=== PATIENT | female | born 1955 | race African-American/Black ===

== ENCOUNTER 2016-06-18 11:27 | Emergency (ER) | payer MEDICARE, MEDICAID ==
[2016-06-18] MEDS ORDERED: NAPROXEN 375 MG TABLET PO ONE (12:03)
--- NOTE | 2016-06-18 12:06 | ER Document Report ---
ED Medical Screen (RME) - General Stated Complaint: HIP PAIN Mode of Arrival: Ambulatory Information source: Patient Notes: 60 y/o F presents to ED c/o right hip and left knee pain. Reports hx of similar symptoms in the past. Denies fever or recent injury. I have greeted and performed a rapid initial assessment of this patient. A comprehensive ED assessment and evaluation of the patient, analysis of test results and completion of the medical decision making process will be conducted by additional ED providers. TRAVEL OUTSIDE OF THE [place] IN LAST 30 DAYS: No - Related Data Allergies/Adverse Reactions: acetaminophen [From Percocet] Allergy (Severe, Verified 02/13/16 11:44) itching oxycodone HCl [From Percocet] Allergy (Severe, Verified 02/13/16 11:44) itching Penicillins Allergy (Severe, Verified 02/13/16 11:44) Generalized Itching orange juice Allergy (Severe, Uncoded 02/13/16 11:44) Generalized Itching Past Medical History - Past Medical History Cardiac Medical History: Reports: Hx Hypertension Pulmonary Medical History: Reports: Hx Asthma Musculoskeltal Medical History: Reports Hx Arthritis Past Surgical History: Reports: Hx Oral Surgery, Hx Tubal Ligation - Immunizations Hx Diphtheria, Pertussis, Tetanus Vaccination: Yes Physical Exam - Vital signs Vitals: Temp Pulse Resp BP Pulse Ox 98.6 F 93 21 H 109/61 97 06/18/16 12:00 06/18/16 12:00 06/18/16 12:00 06/18/16 12:00 06/18/16 12:00 - General General appearance: Appears well, Alert In distress: None Course - Vital Signs Vital signs: Temp Pulse Resp BP Pulse Ox 98.6 F 93 21 H 109/61 97 06/18/16 12:00 06/18/16 12:00 06/18/16 12:00 06/18/16 12:00 06/18/16 12:00
--- NOTE | 2016-06-18 12:44 | ER Document Report ---
ED Extremity Problem, Lower - General Chief Complaint: Knee Pain Stated Complaint: HIP PAIN Time seen by provider: 12:39 Mode of Arrival: Ambulatory Information source: Patient Notes: 60-year-old female presents to ED for complain of pain in her right hip and left knee that is chronic but is worse since yesterday. She states she has not had any injuries. She states that her doctor at [facility] told her that she needed a hip and knee replacement and they have not been scheduled yet. Today this morning she woke up with a headache has a history of high blood pressure but did not take her blood pressure medicine this morning and her blood pressure is 109/61 TRAVEL OUTSIDE OF THE [place] IN LAST 30 DAYS: No - HPI Patient complains to provider of: Pain, Swelling Location: Hip - And headache, Knee Occurred: This morning - Headache started this morning hip and knee pain are chronic Onset/Duration: Persistent Quality of pain: Achy - Headache, Sharp - Knee and hip Severity: Severe Pain Level: 5 Recent injury: No Associated symptoms: Painful ambulation Exacerbated by: Movement, Walking Relieved by: Nothing - Related Data Allergies/Adverse Reactions: Penicillins Allergy (Severe, Verified 02/13/16 11:44) Generalized Itching orange juice Allergy (Severe, Uncoded 02/13/16 11:44) Generalized Itching Past Medical History - General Information source: Patient - Social History Smoking Status: Current Every Day Smoker Cigarette use (# per day): Yes - 2 cigarettes a day Chew tobacco use (# tins/day): No Smoking Education Provided: Yes - less than 1 minute Frequency of alcohol use: None Drug Abuse: None Occupation: none Lives with: Family Family History: Arthritis, CAD, DM, Hyperlipidemia, Hypertension Patient has suicidal ideation: No Patient has homicidal ideation: No - Past Medical History Cardiac Medical History: Reports: Hx Hypertension Pulmonary Medical History: Reports: Hx Asthma, Hx Bronchitis EENT Medical History: Reports: None Neurological Medical History: Reports: None Endocrine Medical History: Reports: None Renal/ Medical History: Reports: None Malignancy Medical History: Reports: None GI Medical History: Reports: None Musculoskeltal Medical History: Reports Hx Arthritis, Reports Hx Musculoskeletal Deformity - States she has been told she needs knee and hip replacement, Reports Hx Musculoskeletal Trauma Skin Medical History: Reports None Psychiatric Medical History: Reports: None Traumatic Medical History: Reports: Hx Fractures - Multiple toes on the left foot Infectious Medical History: Reports: None Past Surgical History: Reports: Hx Oral Surgery - Teeth removed surgically, Hx Tubal Ligation - Immunizations Hx Diphtheria, Pertussis, Tetanus Vaccination: Yes Hx Pneumococcal Vaccination: 05/28/13 Review of Systems - Review of Systems Constitutional: No symptoms reported EENT: Nose discharge, Sinus pressure Cardiovascular: No symptoms reported Respiratory: No symptoms reported Gastrointestinal: No symptoms reported Genitourinary: No symptoms reported Female Genitourinary: No symptoms reported Musculoskeletal: Other - Right hip left knee pain chronic worse since last night Skin: No symptoms reported Hematologic/Lymphatic: No symptoms reported Neurological/Psychological: Headaches -: Yes All other systems reviewed and negative Physical Exam - Vital signs Vitals: Temp Pulse Resp BP Pulse Ox 98.6 F 93 21 H 109/61 97 06/18/16 12:00 06/18/16 12:00 06/18/16 12:00 06/18/16 12:00 06/18/16 12:00 Interpretation: Normal - General General appearance: Appears well, Alert - HEENT Head: Normocephalic, Atraumatic Eyes: Normal Pupils: PERRL Visual [place] normal: Yes Ears: Normal External canal: Normal Tympanic membrane: Normal Sinus: Normal Nasal: Purulent discharge, Swelling Mouth/Lips: Normal Mucous membranes: Normal Pharynx: Normal Neck: Normal - Respiratory Respiratory status: No respiratory distress Chest status: Nontender Breath sounds: Nonproductive cough Chest palpation: Normal - Cardiovascular Rhythm: Regular Heart sounds: Normal auscultation Murmur: No - Abdominal Inspection: Normal Distension: No distension Bowel sounds: Normal Tenderness: Nontender Organomegaly: No organomegaly - Back Back: Normal, Nontender - Extremities General upper extremity: Normal inspection, Nontender, Normal color, Normal ROM , Normal temperature General lower extremity: Normal inspection, Nontender, Normal color, Normal ROM , Normal temperature, Normal weight bearing. No: George's sign - Neurological Neuro grossly intact: Yes Cognition: Normal Orientation: AAOx4 [place] Coma Scale Eye Opening: Spontaneous [place] Coma Scale Verbal: Oriented [place] Coma Scale Motor: Obeys Commands [place]icia Coma Scale Total: 15 Speech: Normal Cranial nerves: Normal Cerebellar coordination: Normal Motor strength normal: LUE, RUE, LLE, RLE Additional motor exam normals: Equal safety admin assistant Babinski reflex: Normal (flexor plantar) Sensory: Normal Biceps - Reflex grade: 2 = Normal Triceps - Reflex grade: 2 = Normal Brachioradialis - Reflex grade: 2 = Normal Knee - Reflex grade: 2 = Normal Ankle - Reflex grade: 2 = Normal - Psychological Associated symptoms: Normal affect, Normal mood - Skin Skin Temperature: Warm Skin Moisture: Dry Skin Color: Normal Course - Re-evaluation Re-evalutation: 06/18/16 14:01 Patient states her head ache is relieved feeling much better since pain in her hip and knee of both decreased and she is ready to go back home. We'll discharge home with a prescription for naproxen which is what she was medicated with in the emergency room - Vital Signs Vital signs: Temp Pulse Resp BP Pulse Ox 98.6 F 93 21 H 109/61 97 06/18/16 12:00 06/18/16 12:00 06/18/16 12:00 06/18/16 12:00 06/18/16 12:00 Discharge - Discharge Clinical Impression: Chronic right hip pain, Chronic pain of left knee Headache Qualifiers: Headache type: unspecified Headache chronicity pattern: acute headache Intractability: not intractable Qualified Code(s): R51 - Headache Condition: Stable Disposition: HOME, SELF-CARE Additional Instructions: HEADACHE: The physician does not feel that the headache you are experiencing has a serious underlying cause. Most headaches are due to emotional stress, with resultant muscle tension (tension headache). Occasionally, headaches are secondary to changes in the blood vessels of the scalp (vascular headache and migraine headache). Sometimes, a headache is the first symptom of another developing illness, such as a viral infection. You have no evidence of stroke, bleeding, meningitis, or other serious cause of your headache. The treatment of headaches varies with the severity and cause of the pain. Not all headaches need pain shots. In fact, there is evidence that using narcotics for headaches may make them worse in the long run. The physician will determine the therapy that's in your best interest. If you develop a fever, if the headache is different from any you've previously experienced, or if the headache progressively worsens, then call your physician at once or go to the emergency room. Chronic Pain Control Stress, inactivity, and depression make pain more severe regardless of the cause of the pain. Stress and poor physical condition can cause pain such as headaches and backache. Relaxation: Rest in a quiet place with your eyes closed for 20 minutes twice daily. Concentrate on a pleasant image, or simply "feel" your breathing. Clear your mind. Stress management: Deal with your "stressors." Either take action, or eliminate the stressor from your life. Don't let things hang over you. Accept those things you can't change. Nutrition: Eat small, balanced meals -- don't skip, don't overeat. Meals should be high-carbohydrate, low-sugar, low-fat. Exercise: Exercise helps painful conditions and eases stress. Get 30 minutes of moderate exercise, five days a week. Do an activity that does not flare your pain. Precautions: Pain which continues to disrupt daily activities, or which changes in nature, requires a medical evaluation. Pain Clinic referral is available. We do not manage chronic pain in the Emergency Department. We will try to appropriately help you through an acute flare of your chronic painful condition , but for on-going chronic pain that does not improve, you will need to see your private doctor or lead based paint technician. We do not provide repeated medication management of chronic painful conditions. If you wish, we can provide the name of local pain management physicians. Anti-Inflammatory Medication You have received a prescription for an antiinflammatory agent. This is an excellent, safe drug for pain control. In addition, it has potent antiinflammatory effects which are beneficial, especially in the treatment of injuries, arthritis, or tendonitis. It's best to take this medicine with food. Persons with ulcer disease or allergy to aspirin should notify their physician of this before taking this drug. Take the medication exactly as prescribed. Don't take additional doses unless instructed to do so by your doctor. If you develop wheezing, shortness of breath, hives, faintness, stomach pain, vomiting, or dark black stools, return for re-evaluation at once. FOLLOW-UP CARE: If you have been referred to a physician for follow-up care, call the physician s office for an appointment as you were instructed or within the next two days. If you experience worsening or a significant change in your symptoms, notify the physician immediately or return to the Emergency Department at any time for re-evaluation. Please follow-up with your primary doctor and with your doctor taking care of your hip and knee. Prescriptions: Naproxen 500 mg PO BIDP PRN #20 tablet PRN Reason:
[2016-06-18] MEDS ORDERED: NAPROXEN 250 MG TABLET PO ONE (12:51)
[2016-06-18 14:10] VITALS: BP 115/76
== END 2016-06-18 14:08 | disposition home or self-care (01) ==
LOC: ER 11:27
DX: G89.29 Other chronic pain (principal); M25.552 Pain in left hip; M25.561 Pain in right knee; R51 Headache; J34.89 Other specified disorders of nose and nasal sinuses; R05 Cough; I10 Essential (primary) hypertension; J45.909 Unspecified asthma, uncomplicated; F17.210 Nicotine dependence, cigarettes, uncomplicated; Z79.899 Other long term (current) drug therapy; Z88.0 Allergy status to penicillin; Z91.018 Allergy to other foods; Z71.6 Tobacco abuse counseling
CPT/HCPCS: 99283; A9270

== ENCOUNTER 2016-10-14 18:21 | Emergency (ER) | payer MEDICARE, MEDICAID ==
--- NOTE | 2016-10-14 19:22 | ER Document Report ---
ED General - General Chief Complaint: Cough Stated Complaint: HEADACHE/NAUSEA Time Seen by Provider: 10/14/16 19:20 Notes: The patient is a 61-year-old female, PMHx seasonal allergies, HTN, who presents with a dry cough, stuffy nose and cough over the past 2 days. She also has a dull frontal headache during the same time. She tried her Flonase without much relief of her symptoms. She stopped smoking for the past 3 days, but her coughing increased. She denies chest pain, shortness of breath, fevers, neck stiffness, blurry vision, numbness, tingling, ataxia or rash. TRAVEL OUTSIDE OF THE [place] IN LAST 30 DAYS: No - Related Data Allergies/Adverse Reactions: Penicillins Allergy (Severe, Verified 10/14/16 18:43) Generalized Itching orange juice Allergy (Severe, Uncoded 10/14/16 18:43) Generalized Itching Past Medical History - General Information source: Patient - Social History Smoking Status: Current Every Day Smoker Family History: Arthritis, CAD, DM, Hyperlipidemia, Hypertension Patient has suicidal ideation: No Patient has homicidal ideation: No - Past Medical History Cardiac Medical History: Reports: Hx Hypertension Pulmonary Medical History: Reports: Hx Asthma, Hx Bronchitis Renal/ Medical History: Denies: Hx Peritoneal Dialysis Musculoskeltal Medical History: Reports Hx Arthritis, Reports Hx Musculoskeletal Deformity - States she has been told she needs knee and hip replacement, Reports Hx Musculoskeletal Trauma Traumatic Medical History: Reports: Hx Fractures - Multiple toes on the left foot Past Surgical History: Reports: Hx Oral Surgery - Teeth removed surgically, Hx Tubal Ligation - Immunizations Hx Diphtheria, Pertussis, Tetanus Vaccination: Yes Hx Pneumococcal Vaccination: 05/28/13 Review of Systems - Review of Systems Notes: REVIEW OF SYSTEMS: CONSTITUTIONAL: -fevers, -chills EENT: -eye pain, -difficulty swallowing, +nasal congestion CARDIOVASCULAR:-chest pain, -syncope. RESPIRATORY: +cough, -SOB GASTROINTESTINAL: -abdominal pain, - nausea, -vomiting, -diarrhea GENITOURINARY: -dysuria, -hematuria MUSCULOSKELETAL: -back pain, -neck pain SKIN: -rash or skin lesions. HEMATOLOGIC: -easy bruising or bleeding. LYMPHATIC: -swollen, enlarged glands. NEUROLOGICAL: -altered mental status or loss of consciousness, +headache, - neurologic symptoms PSYCHIATRIC: -anxiety, -depression. ALL OTHER SYSTEMS REVIEWED AND NEGATIVE. Physical Exam - Vital signs Vitals: Temp Pulse Resp BP Pulse Ox 98.3 F 95 20 123/69 95 10/14/16 18:44 10/14/16 18:44 10/14/16 18:44 10/14/16 18:44 10/14/16 18:44 - Notes Notes: PHYSICAL EXAMINATION: GENERAL: Well-appearing, well-nourished and in no acute distress. HEAD: Atraumatic, normocephalic. EYES: Pupils equal round and reactive to light, extraocular movements intact, sclera anicteric, conjunctiva are normal. ENT: swollen nasal turbinates, posterior cobblestoning, frontal sinus tenderness , nares patent, oropharynx clear without exudates. Moist mucous membranes. NECK: Normal range of motion, supple without lymphadenopathy LUNGS: Breath sounds clear to auscultation bilaterally and equal. No wheezes rales or rhonchi. HEART: Regular rate and rhythm without murmurs ABDOMEN: Soft, nontender, normoactive bowel sounds. No guarding, no rebound. No masses appreciated. EXTREMITIES: Normal range of motion, no pitting or edema. No cyanosis. NEUROLOGICAL: Cranial nerves grossly intact. Normal speech, normal gait. Normal sensory, motor, and reflex exams. PSYCH: Normal mood, normal affect. SKIN: Warm, Dry, normal turgor, no rashes or lesions noted. Course - Re-evaluation Re-evalutation: Patient appears well and has no evidence of pneumonia on chest x-ray or physical exam. Instructed her about continuing Zyrtec, Flonase and sinus rinses for her sinus congestion and sinus headache. Also provided smoking cessation counseling. She told the triage nurse that she had nausea, but denies any nausea or vomiting to me. - Vital Signs Vital signs: Temp Pulse Resp BP Pulse Ox 98.3 F 81 18 133/80 H 95 10/14/16 18:44 10/14/16 20:08 10/14/16 20:08 10/14/16 20:08 10/14/16 20:08 Discharge - Discharge Clinical Impression: Sinus congestion Allergic rhinitis Qualifiers: Allergic rhinitis trigger: unspecified Allergic rhinitis seasonality: seasonal Qualified Code(s): J30.2 - Other seasonal allergic rhinitis Condition: Good Disposition: HOME, SELF-CARE Additional Instructions: Sinus congestion most likely caused by seasonal allergies. Continue her Flonase and add Zyrtec and a sinus rinse to help with your symptoms. Try to continue to stop smoking. UPPER RESPIRATORY ILLNESS: You have a viral infection of the respiratory passages -- a "cold." This common infection causes nasal congestion, drainage, and often sore throat and cough. It is highly contagious. The disease usually lasts about 10 to 14 days. There is no "cure" for the viral infection -- it must run its course. If there is a complication, such as bacterial infection in the nose, sinuses, middle ear, or bronchial tubes, antibiotics may be required. The antibiotics won't affect the virus. Drink plenty of fluids. A humidifier may help. An expectorant medication or decongestant may make you more comfortable. Use acetaminophen or ibuprofen for fever or aches. See the doctor if fever persists over two days, if there is any significant worsening of your symptoms, or if you simply fail to improve as expected. SMOKING: If you smoke, you should stop smoking. The tar and chemicals in cigarette smoke are harmful. Smoking has been shown to cause: emphysema chronic bronchitis lung cancer mouth and throat cancer stomach and pancreas cancer premature aging defects In addition, smoking increases ear and lung infections in children of smokers. FOLLOW-UP CARE: If you have been referred to a physician for follow-up care, call the physician s office for an appointment as you were instructed or within the next two days. If you experience worsening or a significant change in your symptoms, notify the physician immediately or return to the Emergency Department at any time for re-evaluation. Sinusitis You have sinusitis, an infection of the sinus cavities of the face. The sinuses are air-filled chambers which open into the inside of the nose. Bacteria and pus fill a sinus, causing pain, drainage, and fever. Healing requires seven to 10 days. Avoid chemical fumes, pollens, dusts, and smoke (especially cigarette smoke ). Keep the air humidified in your bedroom and work area and take plenty of liquids by mouth. This condition can be serious if the infection spreads. If your symptoms worsen, or if you develop severe headache, high fever, stiff neck, or a rash, you must call the doctor or return for re-evaluation. Referrals: FRACISCO FERNANDEZ MD [Primary Care Provider] - Follow up as needed
[2016-10-14] MEDS ORDERED: IBUPROFEN 600 MG TABLET PO ONE (19:59)
[2016-10-14 20:09] VITALS: BP 133/80
== END 2016-10-14 20:09 | disposition home or self-care (01) ==
LOC: ER 18:21
DX: J45.909 Unspecified asthma, uncomplicated (principal); R05 Cough; R09.81 Nasal congestion; R51 Headache; I10 Essential (primary) hypertension; F17.200 Nicotine dependence, unspecified, uncomplicated; Z71.6 Tobacco abuse counseling; Z88.0 Allergy status to penicillin; Z91.018 Allergy to other foods
CPT/HCPCS: 99283; 71020; A9270

== ENCOUNTER 2017-02-17 19:25 | Emergency (ER) | payer MEDICARE, MEDICAID ==
[2017-02-17 19:30] VITALS: BP 129/70
--- NOTE | 2017-02-17 19:58 | ER Document Report ---
ED Hip Pain/Injury - General Chief Complaint: Hip Pain Stated Complaint: RIGHT HIP PAIN Time Seen by Provider: 02/17/17 19:41 TRAVEL OUTSIDE OF THE [place] IN LAST 30 DAYS: No - HPI Patient complains to provider of: Pain, Hip - right Occurred: Other - 3 days Onset/Duration: Gradual Quality of pain: Achy Severity: Moderate Context: No trauma Skin Color: Normal Skin Temperature: Warm Rotation of extremity: None Pain with palpation of the pelvis: No Associated Symptoms: None Other injuries: denies: Abdomen, Back, Chest, Face, Head, Neck, LUE, LLE, RUE, RLE - Related Data Allergies/Adverse Reactions: Penicillins Allergy (Severe, Verified 02/17/17 19:27) Generalized Itching orange juice Allergy (Severe, Uncoded 10/14/16 18:43) Generalized Itching Past Medical History - Social History Smoking Status: Current Every Day Smoker Family History: Arthritis, CAD, DM, Hyperlipidemia, Hypertension Patient has suicidal ideation: No Patient has homicidal ideation: No - Past Medical History Cardiac Medical History: Reports: Hx Hypertension Pulmonary Medical History: Reports: Hx Asthma, Hx Bronchitis Renal/ Medical History: Denies: Hx Peritoneal Dialysis Musculoskeltal Medical History: Reports Hx Arthritis, Reports Hx Musculoskeletal Deformity - States she has been told she needs knee and hip replacement, Reports Hx Musculoskeletal Trauma Traumatic Medical History: Reports: Hx Fractures - Multiple toes on the left foot Past Surgical History: Reports: Hx Oral Surgery - Teeth removed surgically, Hx Tubal Ligation - Immunizations Hx Diphtheria, Pertussis, Tetanus Vaccination: Yes Hx Pneumococcal Vaccination: 05/28/13 Review of Systems - Review of Systems Constitutional: No symptoms reported Musculoskeletal: See HPI -: Yes All other systems reviewed and negative Physical Exam - Vital signs Vitals: Temp Pulse Resp BP Pulse Ox 98.9 F 83 18 129/70 H 94 02/17/17 19:27 02/17/17 19:27 02/17/17 19:27 02/17/17 19:27 02/17/17 19:27 - General General appearance: Appears well, Alert In distress: None - Cardiovascular Pulses: Normal: Femoral, Dorsalis pedis Normal capillary refill: Yes - Extremities General lower extremity: Normal inspection, Nontender, Normal color, Normal ROM , Normal strength, Normal temperature, Normal weight bearing - Neurological Neuro grossly intact: Yes Cognition: Normal Orientation: AAOx4 [place] Coma Scale Eye Opening: Spontaneous [place] Coma Scale Verbal: Oriented [place] Coma Scale Motor: Obeys Commands [place] Coma Scale Total: 15 Motor strength normal: LLE, RLE Additional motor exam normals: No: Weakness Sensory: Normal - Skin Skin Temperature: Warm Skin Moisture: Dry Skin Color: Normal Skin Turgor: Elastic Course - Re-evaluation Re-evalutation: 02/17/17 20:58 No evidence of a septic joint, gout flare, dislocation, or fracture on exam and imaging. Vitals wnl. At this time, I do not see an indication for labs or further imaging. Will discharge with conservative measures, return precautions, and follow-up recommendations. - Vital Signs Vital signs: Temp Pulse Resp BP Pulse Ox 98.9 F 83 18 129/70 H 94 02/17/17 19:27 02/17/17 19:27 02/17/17 19:27 02/17/17 19:27 02/17/17 19:27 Discharge - Discharge Clinical Impression: Generalized osteoarthrosis, involving multiple sites Condition: Good Disposition: HOME, SELF-CARE Instructions: Arthritis ([facility], [facility]) Referrals: FRACISCO FERNANDEZ MD [Primary Care Provider] - Follow up as needed
--- NOTE | 2017-02-17 20:43 | RADIOLOGY REPORT (SQ) ---
EXAM DESCRIPTION: HIP RIGHT AP/LATERAL COMPLETED DATE/TIME: 02/17/2017 8:23 pm REASON FOR STUDY: pain, denies fall/trauma COMPARISON: None. NUMBER OF VIEWS: Two views. TECHNIQUE: AP pelvis and additional frog-leg view of the right hip. LIMITATIONS: None. FINDINGS: MINERALIZATION: Normal. RIGHT HIP: No fracture or dislocation. No worrisome bone lesions. LEFT HIP: No fracture or dislocation. No worrisome bone lesions. PUBIS AND ISCHIUM: No fracture. PELVIS: No fracture. SACRUM: No fracture or dislocation. No worrisome bone lesions. LOWER LUMBAR SPINE: No fracture or dislocation. No worrisome bone lesions. No significant disc disea se. SOFT TISSUES: No findings. OTHER: No other significant finding. IMPRESSION: NEGATIVE STUDY OF THE RIGHT HIP. NO RADIOGRAPHIC EVIDENCE OF ACUTE INJURY. TECHNICAL DOCUMENTATION: JOB ID: [id number] [employer]- All Rights Reserved
[2017-02-17] MEDS ORDERED: KETOROLAC TROMETHAMINE INJ/PF 30 MG/1 ML SDV IM ONE (20:58)
== END 2017-02-17 21:23 | disposition home or self-care (01) ==
LOC: ER 19:25
DX: M15.9 Polyosteoarthritis, unspecified (principal); M25.551 Pain in right hip; F17.200 Nicotine dependence, unspecified, uncomplicated
CPT/HCPCS: 99283; 96372; 73502; J1885

== ENCOUNTER → 2018-04-25 | Outpatient (CLI) | payer MEDICARE, MEDICAID ==
--- NOTE | 2018-04-25 11:05 | RADIOLOGY REPORT (SQ) ---
EXAM DESCRIPTION: MRI LUMBAR SPINE WITHOUT COMPLETED DATE/TIME: 04/25/2018 9:15 am REASON FOR STUDY: OTHER INTERVERTEBRAL DISC DEGENERATION, LUMBOSACRAL REGION (M51.37) M51.37 OTHER INTERVERTEBRAL DISC DEGENERATION, LUMBOSACRAL R COMPARISON: Lumbar spine plain films 09/02/2012 TECHNIQUE: Sagittal and Axial imaging includes T1, T2, STIR and gradient echo sequences. Coronal T2/ HASTE imaging. LIMITATIONS: None. FINDINGS: VISUALIZED UPPER ABDOMEN: Limited evaluation. No acute or suspicious findings suggested. SEGMENTATION: No transitional anatomy. The lowest well-developed disc space is labeled L5-S1. ALIGNMENT: Anatomic. VERTEBRAE: Intact. BONE MARROW: Normal. No marrow replacement or reactive changes. DISC SIGNAL: Normal. No significant abnormal signal or loss of height. POSTERIOR ELEMENTS: Generally intact. No pars defect evident. HARDWARE: None in the spine. CORD AND CONUS: Normal in size and signal intensity. Conus at the appropriate level. SOFT TISSUES: No aortic aneurysm seen. No bulky retroperitoneal adenopathy or mass. No paraspinal mas s or fluid. L1-L2: No significant spinal stenosis or exit foraminal stenosis. L2-L3: No significant spinal stenosis or exit foraminal stenosis. L3-L4: No significant spinal stenosis or exit foraminal stenosis. L4-L5: Broad diffuse posterior disc bulge bony spurring is present with moderate bilateral facet and ligament hypertrophy. Mild central canal narrowing. Mild bilateral inferior foraminal narrowing wit hout exit L4 nerve root impingement. L5-S1: No significant spinal stenosis or exit foraminal stenosis. LOWER THORACIC: Incompletely imaged. No stenosis seen. SACRUM: Visualized upper sacrum intact. OTHER: No other significant findings. IMPRESSION: Mild degenerative disc changes at L4-5 TECHNICAL DOCUMENTATION: JOB ID: [id number] [employer]- All Rights Reserved Reading location - IP/workstation name: [email or web address]
== END ==
LOC: RAD 08:24
PROVIDERS: ATTEND Physician Assistant
DX: M51.37 Other intervertebral disc degeneration, lumbosacral region (principal)
CPT/HCPCS: 72148

== ENCOUNTER 2020-01-21 10:37 | Day surgery (SDC) | payer MEDICAID, MEDICARE ==
[2020-01-15 13:15] LABS: HEMATOCRIT 43.2 % (36.0-47.0); HEMOGLOBIN 14.8 g/dL (12.0-15.5); MEAN CORPUSCULAR HEMOGLOBIN 33.3 pg (27.0-33.4); MEAN CORPUSCULAR HGB CONC 34.2 g/dL (32.0-36.0); MEAN CORPUSCULAR VOLUME 98 fl (80-97); PLATELET COUNT 482 10^3/uL (150-450); RED BLOOD COUNT 4.43 10^6/uL (3.72-5.28); RED CELL DISTRIBUTION WIDTH 13.2 % (11.5-14.0); WHITE BLOOD COUNT 10.6 10^3/uL (4.0-10.5)
[2020-01-15 13:38] LABS: ALBUMIN 3.3 g/dL (3.5-5.0); ALKALINE PHOSPHATASE 88 U/L (38-126); ANION GAP 11 (5-19); ASPARTATE AMINO TRANSFERASE 25 U/L (14-36); BILIRUBIN,DIRECT 0.1 mg/dL (0.0-0.4); BILIRUBIN,TOTAL 0.7 mg/dL (0.2-1.3); BLOOD UREA NITROGEN 9 mg/dL (7-20); CALCIUM 9.2 mg/dL (8.4-10.2); CARBON DIOXIDE 27 mmol/L (22-30); CHLORIDE 98 mmol/L (98-107); GLUCOSE 84 mg/dL (75-110); POTASSIUM 3.6 mmol/L (3.6-5.0); TOTAL PROTEIN 6.7 g/dL (6.3-8.2)
--- NOTE | 2020-01-15 13:58 | RADIOLOGY REPORT (SQ) ---
EXAM DESCRIPTION: CHEST PA/LATERAL IMAGES COMPLETED DATE/TIME: 01/15/2020 12:53 pm REASON FOR STUDY: COUGH COMPARISON: 07/10/2014 EXAM PARAMETERS: NUMBER OF VIEWS: two views TECHNIQUE: Digital Frontal and Lateral radiographic views of the chest acquired. RADIATION DOSE: NA LIMITATIONS: none FINDINGS: LUNGS AND PLEURA: No opacities, masses or pneumothorax. No pleural effusion. MEDIASTINUM AND HILAR STRUCTURES: Right paratracheal density not present on the prior, possibly artif act from overlapping normal vessels. Enlarged main pulmonary arterial segment unchanged. HEART AND VASCULAR STRUCTURES: Heart normal size. No evidence for failure. BONES: No acute findings. HARDWARE: None in the chest. OTHER: No other significant finding. IMPRESSION: Possible right paratracheal adenopathy. Consider CT follow-up. TECHNICAL DOCUMENTATION: JOB ID: [id number] 2010 [employer]- All Rights Reserved Reading location - IP/workstation name: [email or web address]
--- NOTE | 2020-01-15 18:38 | EKG REPORT ---
SEVERITY:- ABNORMAL ECG - SINUS RHYTHM VENTRICULAR TRIGEMINY LEFT AXIS DEVIATION BORDERLINE R WAVE PROGRESSION, ANTERIOR LEADS BORDERLINE T ABNORMALITIES, ANT-LAT LEADS : Confirmed by: Eugene Ram 15-Jan-2020 18:38:04
[~2020-01-21 10:37] MED LIST: ACETAMINOPHEN 325 MG TABLET PO PRN; CEFOXITIN SODIUM 2 GM in DEXTROSE 5%-WATER 100 ML IV PRN; GLYCOPYRROLATE 1 MG/5 ML VIAL ONE; IBUPROFEN 800 MG in NORMAL SALINE 250 ML IV PRN; NEOSTIGMINE METHYLSULFATE 10 MG/10 ML VIAL ONE
[2020-01-21] MEDS ORDERED: ACETAMINOPHEN 325 MG TABLET ONE (11:45)
[2020-01-21] MEDS ORDERED: FENTANYL CITRATE INJ/PF 100 MCG/2 ML AMPUL ONE (12:50)
[2020-01-21] MEDS ORDERED: BUPIVACAINE HCL 0.25 % INJ/PF (2.5 MG/1 ML) 30 ML VIAL ONE (12:50)
[2020-01-21] MEDS ORDERED: LIDOCAINE 2% INJ-PF (20 MG/ML) 10 ML AMPUL ONE (12:50)
[2020-01-21] MEDS ORDERED: MIDAZOLAM 2 MG/2 ML INJ ONE (12:51)
[2020-01-21] MEDS ORDERED: ONDANSETRON HCL INJ/PF 4 MG/2 ML SDV ONE (12:51)
[2020-01-21] MEDS ORDERED: DEXAMETHASONE SOD PHOSPHATE INJ 4 MG/1 ML VIAL ONE (12:51)
[2020-01-21] MEDS ORDERED: PROPOFOL INJ 200 MG/20 ML VIAL IV ONE (12:52)
[2020-01-21] MEDS ORDERED: MEPERIDINE HCL/PF INJ 25 MG/1 ML DISP.SYRIN IV PRN (13:34)
[2020-01-21] MEDS ORDERED: DIPHENHYDRAMINE HCL 50 MG/ML VIAL IV PRN (13:34)
[2020-01-21] MEDS ORDERED: PROMETHAZINE HCL INJ 25 MG/1 ML VIAL IV PRN ×2 (13:34)
[2020-01-21] MEDS ORDERED: OXYCODONE-ACETAMINOPHEN 5-325 MG TABLET PO PRN ×2 (13:34)
[2020-01-21] MEDS ORDERED: MORPHINE SULFATE 10 MG/ML INJ IV PRN (13:34)
[2020-01-21] MEDS ORDERED: FENTANYL CITRATE INJ/PF 100 MCG/2 ML AMPUL IV PRN ×3 (13:34)
[2020-01-21] MEDS ORDERED: HYDROMORPHONE HCL INJ/PF 2 MG/ML AMPULE ONE (14:17)
--- NOTE | 2020-01-21 15:43 | Operative Report ---
Nonrecallable Operative Report DATE OF SURGERY: 01/21/20 PREOPERATIVE DIAGNOSIS: Chronic cholecystitis POSTOPERATIVE DIAGNOSIS: Same as above OPERATION: Laparoscopic cholecystectomy SURGEON: MICHELLE NEVES ANESTHESIA: GA TISSUE REMOVED OR ALTERED: Gallbladder COMPLICATIONS: None apparent ESTIMATED BLOOD LOSS: 30 cc PROCEDURE: Drains/implants: None. Procedure in detail: After informed consent was obtained, the patient was brought to the operating room and laid in the supine position. The area of the abdomen was prepped and draped in a normal sterile fashion. A supraumbilical incision was created with a 15 blade scalpel. Dissection was carried through the subcutaneous tissues using sharp and blunt dissection. The cicatrix was identified, grasped with a Rosibel clamp, and retracted upwards. The linea alba fascia was incised sharply, the abdomen was entered sharply. The balloon trocar was inserted, and pneumoperitoneum was achieved. A subxiphoid 5 mm port was then placed under direct laparoscopic visualization. 2 more 5 mm ports were placed in the right upper quadrant in similar fashion. Atraumatic graspers were placed through the 5 mm ports. The gallbladder was retracted cephalad and laterally. Dissection was begun in the triangle of Calot. There was a dense inflammatory reaction in and around the gallbladder, making dissection somewhat difficult. The cystic duct and cystic artery were then fully visualized and skeletonized. There were multiple branches of the cystic artery terminating at multiple levels of the gallbladder. These were serially dissected, ligated, and then divided. Once the critical view of safety was obtained, the cystic duct was clipped and cut with laparoscopic instruments. The gallbladder was then removed from the liver using Bovie electrocautery. The gallbladder was placed into an Endo Catch bag, and removed through the supraumbilical trocar site. The camera was reinserted. The abdomen was then copiously irrigated and suctioned, until the effluent was clear. The hilum was inspected. It was found to be free of any leakage of blood or bile. Once this was confirmed, the 5 mm trochars were removed under direct laparoscopic visualization. The supraumbilical trocar was removed, and pneumoperitoneum was relieved. The supraumbilical fascia was closed using 0 Vicryl suture in [id number] fashion. The overlying skin was closed using 4-0 Vicryl Rapide suture in subcuticular fashion. Dressings were placed, and the procedure was concluded. All sponge, instrument, and needle counts were correct times 2. Condition: Stable.
[2020-01-21] MEDS ORDERED: HYDROCODONE/ACETAMINOPHEN 10-325 MG TABLET PO PRN (16:05)
--- NOTE | 2020-01-21 16:05 | Discharge Summary ---
Discharge Summary (SDC) - Discharge Final Diagnosis: Chronic cholecystitis Date of Surgery: 01/21/20 Discharge Date: 01/21/20 Condition: Stable Forms: ASU Anesthesia D/C Instruction, Discharge POC-Surgical Service Treatment or Instructions: Discharge home. Diet as tolerated. Activity: No lifting greater than 10 pounds x 2 weeks. Follow-up with [facility] in 7 to 10 days. Okay to shower starting on Sunday. No baths or swimming pools x2 weeks. Persia 10/325 mg p.o. every 6 hours as needed for pain. Prescriptions: Hydrocodone/Acetaminophen [Persia 10-325 mg Tablet] 1 tab PO Q6HP PRN #14 tablet PRN Reason: For Pain Referrals: MICHELLE NEVES MD [ACTIVE STAFF] - 02/04/20 8:15 am Discharge Diet: As Tolerated Respiratory Treatments at Home: Deep Breathing/Coughing, Incentive Spirometer Discharge Activity: Balance Activity w/Rest, No Lifting Over 10 Pounds, No Lifting/Push/Pulling Home Care Assistance: None Needed Report the Following to Your Physician Immediately: Shortness of Breath, Nausea, Vomiting, Increase in Pain, Yellow Skin, Fever over 101 Degrees, Unusual Bleeding, Redness, Swelling, Warmth
[2020-01-21 17:55] VITALS: BP 91/61
== END 2020-01-21 17:10 | disposition home or self-care (01) ==
LOC: OROUT 10:37
PROVIDERS: ATTEND Surgery
DX: K80.10 Calculus of gallbladder with chronic cholecystitis without obstruction (principal); G47.33 Obstructive sleep apnea (adult) (pediatric); I10 Essential (primary) hypertension; J45.909 Unspecified asthma, uncomplicated; M19.90 Unspecified osteoarthritis, unspecified site; F17.210 Nicotine dependence, cigarettes, uncomplicated; Z03.818 Encounter for observation for suspected exposure to other biological agents ruled out; Z01.818 Encounter for other preprocedural examination; Z79.899 Other long term (current) drug therapy; Z79.82 Long term (current) use of aspirin
CPT/HCPCS: 93005; 36415 ×2; 84132; 85027; 80053; 88304 ×2; 71046; 93010; 47562; U0003; A9270; J2250; J1100; J3010; J2710; J1170; J2405; J7060; J7050; J2704; J3490 ×2; J1741; J0694; C9803; 790; 87635

== ENCOUNTER → 2020-03-08 | Outpatient (CLI) | payer MEDICARE ==
--- NOTE | 2020-03-08 14:11 | RADIOLOGY REPORT (SQ) ---
EXAM DESCRIPTION: CT CHEST WITHOUT IMAGES COMPLETED DATE/TIME: 03/08/2020 1:44 pm REASON FOR STUDY: (R93.89)ABNORMAL FINDINGS ON DX IMAGING OF OTH BODY STRUCTURES R93.89 ABNORMAL FI NDINGS ON DX IMAGING OF OTH BODY STRUCTURE COMPARISON: None. TECHNIQUE: CT scan performed of the chest without intravenous contrast. Images reviewed with lung, soft tissue and bone windows. Reconstructed coronal and sagittal MPR images reviewed. All images st ored on PACS. All CT scanners at this facility use dose modulation, iterative reconstruction, and/or weight based d osing when appropriate to reduce radiation dose to as low as reasonably achievable (ALARA). [facility]: Dose Right [facility]: CareDose [facility]: Dose Right [facility]: Teradose 4D [facility]: Smart Kwicr RADIATION DOSE: CT Rad equipment meets quality standard of care and radiation dose reduction techniq ues were employed. CTDIvol: 9.9 mGy. DLP: 358 mGy-cm. mGy. LIMITATIONS: No technical limitations. FINDINGS: LUNGS AND PLEURA: No masses, infiltrates, or pneumothorax. No pleural effusions or pleura l calcifications. HILAR AND MEDIASTINAL STRUCTURES: There is a 4 to 5 cm thick upper mediastinal mass that extends from anterior to posterior along the right paratracheal region. This is fairly homogeneous. HEART AND VASCULAR STRUCTURES: No aneurysm. No pericardial effusion. UPPER ABDOMEN: No significant findings. Limited exam. THYROID AND OTHER SOFT TISSUES: No masses. No adenopathy. BONES: No significant finding. HARDWARE: None in the chest. OTHER: No other significant findings. IMPRESSION: Homogeneous upper mediastinal mass. This could represent matted adenopathy. Cannot exc lude lymphoma. Thymoma seems less likely. TECHNICAL DOCUMENTATION: JOB ID: [id number] Quality ID # [id number]: Final reports with documentation of one or more dose reduction techniques (e.g., Au tomated exposure control, adjustment of the mA and/or kV according to patient size, use of iterative reconstruction technique) 2010 [employer]- All Rights Reserved Reading location - IP/workstation name: [email or web address]
== END ==
LOC: RAD 12:45
PROVIDERS: ATTEND Nurse Practitioner Adult Health
DX: R22.2 Localized swelling, mass and lump, trunk (principal)
CPT/HCPCS: 71250

== ENCOUNTER → 2020-03-20 | Outpatient (CLI) | payer MEDICARE ==
[2020-03-20 12:37] LABS: INTERNATIONAL RATION (INR) 1.05; PROTHROMBIN TIME 13.9 SEC (11.4-15.4)
[2020-03-20 12:38] LABS: PARTIAL THROMBOPLASTIN TIME 34.3 SEC (23.5-35.8)
[2020-03-20 12:44] LABS: ABSOLUTE LYMPHOCYTES (AUTO) 2.5 10^3/uL (0.5-4.7); ABSOLUTE MONOCYTES (AUTO) 0.7 10^3/uL (0.1-1.4); ABSOLUTE NEUT (AUTO) 4.2 10^3/uL (1.7-8.2); BASOPHILS % (AUTO) 0.4 % (0-2); EOSINOPHILS % (AUTO) 0.4 % (0-6); HEMATOCRIT 40.9 % (36.0-47.0); HEMOGLOBIN 14.5 g/dL (12.0-15.5); LYMPHOCYTES % (AUTO) 33.2 % (13-45); MEAN CORPUSCULAR HEMOGLOBIN 34.4 pg (27.0-33.4); MEAN CORPUSCULAR HGB CONC 35.5 g/dL (32.0-36.0); MEAN CORPUSCULAR VOLUME 97 fl (80-97); MONOCYTES % (AUTO) 9.8 % (3-13); PLATELET COUNT 383 10^3/uL (150-450); RED BLOOD COUNT 4.22 10^6/uL (3.72-5.28); RED CELL DISTRIBUTION WIDTH 13.2 % (11.5-14.0); SEGMENTED NEUTROPHILS % (AUTO) 56.2 % (42-78); TOTAL CELLS COUNTED % (AUTO) 100 %; WHITE BLOOD COUNT 7.5 10^3/uL (4.0-10.5)
== END ==
LOC: OD 11:29
PROVIDERS: ATTEND Internal Medicine Pulmonary Disease
DX: R91.8 Other nonspecific abnormal finding of lung field (principal)
CPT/HCPCS: 36415; 85025; 85610; 85730

== ENCOUNTER 2020-03-22 10:24 | Day surgery (SDC) | payer MEDICARE ==
[~2020-03-22 10:24] MED LIST changes: -ACETAMINOPHEN 325 MG TABLET PO PRN; +ALBUTEROL SULFATE 0.083% NEB 2.5 MG/3 ML AMPUL NEB ONE; +ATROPINE SULFATE INJ 0.4 MG/1 ML VIAL IM PRN; -CEFOXITIN SODIUM 2 GM in DEXTROSE 5%-WATER 100 ML IV PRN; -IBUPROFEN 800 MG in NORMAL SALINE 250 ML IV PRN; +LIDOCAINE 4% INJ/PF (40 MG/ML) 5 ML AMPUL NEB ONE; -NEOSTIGMINE METHYLSULFATE 10 MG/10 ML VIAL ONE; +NORMAL SALINE 250 ML IV PRN; +PROMETHAZINE HCL INJ 25 MG/1 ML VIAL IM PRN
[2020-03-22 11:08] LABS: ABSOLUTE EOSINOPHILS # (AUTO) 0.1 10^3/uL (0.0-0.6); ABSOLUTE MONOCYTES (AUTO) 0.8 10^3/uL (0.1-1.4); ABSOLUTE NEUT (AUTO) 4.2 10^3/uL (1.7-8.2); BASOPHILS % (AUTO) 0.4 % (0-2); EOSINOPHILS % (AUTO) 0.7 % (0-6); HEMATOCRIT 41.8 % (36.0-47.0); HEMOGLOBIN 14.9 g/dL (12.0-15.5); MEAN CORPUSCULAR HEMOGLOBIN 34.2 pg (27.0-33.4); MEAN CORPUSCULAR HGB CONC 35.6 g/dL (32.0-36.0); MEAN CORPUSCULAR VOLUME 96 fl (80-97); MONOCYTES % (AUTO) 9.6 % (3-13); PLATELET COUNT 375 10^3/uL (150-450); RED BLOOD COUNT 4.36 10^6/uL (3.72-5.28); RED CELL DISTRIBUTION WIDTH 12.9 % (11.5-14.0); SEGMENTED NEUTROPHILS % (AUTO) 52.3 % (42-78); TOTAL CELLS COUNTED % (AUTO) 100 %
[2020-03-22 11:17] LABS: PROTHROMBIN TIME 13.4 SEC (11.4-15.4)
[2020-03-22 11:18] LABS: PARTIAL THROMBOPLASTIN TIME 30.9 SEC (23.5-35.8)
[2020-03-22] MEDS ORDERED: LIDOCAINE 4% INJ/PF (40 MG/ML) 5 ML AMPUL ONE (11:20)
[2020-03-22] MEDS ORDERED: ALBUTEROL SULFATE 0.083% NEB 2.5 MG/3 ML AMPUL NEB ONE (11:20)
[2020-03-22] MEDS ORDERED: PROMETHAZINE HCL INJ 25 MG/1 ML VIAL ONE (11:20)
[2020-03-22] MEDS ORDERED: ATROPINE SULFATE INJ 1 MG/10 ML DISP.SYRIN IV ONE (11:20)
[2020-03-22 11:30] LABS: ANION GAP 9 (5-19); BLOOD UREA NITROGEN 10 mg/dL (7-20); CALCIUM 8.9 mg/dL (8.4-10.2); CARBON DIOXIDE 31 mmol/L (22-30); CHLORIDE 91 mmol/L (98-107); GLUCOSE 103 mg/dL (75-110); POTASSIUM 3.1 mmol/L (3.6-5.0)
[2020-03-22] MEDS ORDERED: FENTANYL CITRATE INJ/PF 100 MCG/2 ML AMPUL ONE (12:53)
[2020-03-22] MEDS ORDERED: ONDANSETRON HCL INJ/PF 4 MG/2 ML SDV ONE (12:53)
[2020-03-22] MEDS ORDERED: MIDAZOLAM 2 MG/2 ML INJ ONE (12:53)
[2020-03-22] MEDS ORDERED: PROPOFOL INJ 200 MG/20 ML VIAL IV ONE (12:54)
[2020-03-22] MEDS ORDERED: LIDOCAINE 2% VISCOUS SOLN 15 ML UDCUP ONE (13:21)
--- NOTE | 2020-03-22 14:07 | Operative Report ---
Operative Report DATE OF SURGERY: 03/22/20 PREOPERATIVE DIAGNOSIS: Large right upper lobe mass. POSTOPERATIVE DIAGNOSIS: Markedly irregular tracheal mucosal surfaces with hemorrhage. Mid trachea to distal trachea was narrowed with extrinsic compression. Orifice to the right upper lobe was markedly narrowed. No obvious endobronchial tumor was noted in the right upper lobe. Bronchus intermedius was markedly narrowed. Right middle lobe and right lower lobe bronchi were mildly narrowed without obvious endobronchial tumor. Multiple photographs were taken OPERATION: Fiberoptic bronchoscopy with brushings washings and endobronchial biopsies. SURGEON: RAFAL ANGELSE ANESTHESIA: Moderate Sedation TISSUE REMOVED OR ALTERED: Multiple endobronchial biopsies. COMPLICATIONS: None ESTIMATED BLOOD LOSS: Less than 5 cc INTRAOPERATIVE FINDINGS: Grossly abnormal and hemorrhagic mucosa involving the mid to lower trachea. The right upper lobe and bronchus intermedius mucosal surfaces were likewise markedly abnormal. There was extrinsic compression of the mid to distal trachea as well as the right upper lobe bronchus. PROCEDURE: Informed consent was obtained. Patient was prepped and draped in the usual fashion. Anesthesia was per anesthesiology. Bronchoscope was introduced via th e right nares without difficulty. Vocal cords were visualized and were normal. Both moved symmetrically. Proximal trachea was visualized and appeared grossly normal beginning at the mid trachea there was extrinsic compression with markedly abnormal mucosa. The mucosa appeared to be studded with endobronchial tumor. Tissue was very friable with bleeding noted. Attention was then focused to the left mainstem bronchus where the left mainstem left upper lobe left lower lobe bronchi as well as her segments and subsegments were visualized. They appeared to be grossly normal. No endobronchial tumor was appreciated. Attention was then focused to the right where there appeared to be a right mid trachea tumor. This was small. The right upper lobe orifice was also appreciated. It was markedly narrowed. Mucosal surfaces were markedly abnormal and friable. The anterior apical and posterior subsegments of the right upper lobe were visualized and although they were narrowed there was no obvious endobronchial tumor. The bronchus intermedius revealed friable mucosa. It was narrowed as well. The right middle lobe and right lower lobe bronchi as well as their segments and subsegments were visualized. They appear to be grossly normal. Attention was then refocused to the mid trachea where a nodular tumor was appreciated. Multiple brushings and biopsies were taken of this area. Multiple brushings washings and biopsies were taken of the distal trachea as well. Patient tolerated procedure well. Specimens were sent for path analysis. Was transported to recovery in good condition.
[2020-03-22] MEDS: PHENYLEPHRINE HCL INJ/PF 10 MG/1 ML SDV ONE ×3 (14:22→15:30)
[2020-03-22] MEDS ORDERED: EPHEDRINE SULFATE INJ 50 MG/1 ML AMPULE ONE (15:04)
--- NOTE | 2020-03-22 16:57 | RADIOLOGY REPORT (SQ) ---
EXAM DESCRIPTION: CHEST SINGLE VIEW IMAGES COMPLETED DATE/TIME: 03/22/2020 4:42 pm REASON FOR STUDY: POST BRONCH COMPARISON: 01/15/2020 EXAM PARAMETERS: NUMBER OF VIEWS: One view. TECHNIQUE: Single frontal radiographic view of the chest acquired. RADIATION DOSE: NA LIMITATIONS: None. FINDINGS: LUNGS AND PLEURA: Status post bronchoscopy, no evidence of pneumothorax. No acute pulmon shakila consolidation. No pleural effusion. MEDIASTINUM AND HILAR STRUCTURES: Since the previous examination, interval progression and increase in size of the right paratracheal mass (please see CT chest report 03/08/2020). HEART AND VASCULAR STRUCTURES: Heart normal in size. Normal vasculature. BONES: No acute findings. HARDWARE: None in the chest. OTHER: No other significant finding. IMPRESSION: 1. Status post bronchoscopy, no evidence of pneumothorax. 2. Interval increase in size of the right paratracheal mass since the previous examination dated 12/27. Please see CT chest report. TECHNICAL DOCUMENTATION: JOB ID: [id number] 2010 [employer]- All Rights Reserved Reading location - IP/workstation name: [email or web address]
[2020-03-22 17:14] VITALS: BP 88/52
--- NOTE | 2020-03-24 09:19 | PDOC DISCHARGE SUMMARY ---
Impression - Admit/DC Date/PCP Admission Date/Primary Care Provider: FRACISCO FERNANDEZ Discharge Date: 03/24/20 - Assessment Summary: Patient was admitted to day surgery for fiberoptic bronchoscopy. This was performed without complication. Patient underwent normal recovery in the day surgery area. She was noted to be mildly hypotensive but able to stand and walk without difficulty. She was dismissed home to continue her home medications and follow-up in 2 days for bronchoscopy results. - Additional Information Discharge Diet: As Tolerated Discharge Activity: Activity As Tolerated Referrals: RAFAL ANGELES MD [ACTIVE PROVISIONAL STAFF] - FRACISCO FERNANDEZ MD [Primary Care Provider] - Home Medications: Hydrochlorothiazide 25 mg PO DAILY 06/09/14 Albuterol Sulfate [Albuterol Sulfate Hfa] 1 - 2 puff IH Q4 10/28/14 Aspirin 81 mg PO DAILY 01/21/20 History of Present Illiness History of Present Illness: CHERELLE CREWS is a 64 year old female Physical Exam Vital Signs: Temp Pulse Resp BP Pulse Ox 98.0 F 98 14 88/52 L 100 03/22/20 17:00 03/22/20 17:00 03/22/20 17:00 03/22/20 17:00 03/22/20 17:00 Intake & Output 03/23/20 03/24/20 03/25/20 06:59 06:59 06:59 Intake Total 1522 Balance 1522 Weight 86.8 kg Results Laboratory Results: WBC 8.0 10^3/uL (4.0-10.5) 03/22/20 11:01 RBC 4.36 10^6/uL (3.72-5.28) 03/22/20 11:01 Hgb 14.9 g/dL (12.0-15.5) 03/22/20 11:01 Hct 41.8 % (36.0-47.0) 03/22/20 11:01 MCV 96 fl (80-97) 03/22/20 11:01 MCH 34.2 pg (27.0-33.4) H 03/22/20 11:01 MCHC 35.6 g/dL (32.0-36.0) 03/22/20 11:01 RDW 12.9 % (11.5-14.0) 03/22/20 11:01 Plt Count 375 10^3/uL (150-450) 03/22/20 11:01 Lymph % (Auto) 37.0 % (13-45) 03/22/20 11:01 Warrick % (Auto) 9.6 % (3-13) 03/22/20 11:01 Eos % (Auto) 0.7 % (0-6) 03/22/20 11:01 Baso % (Auto) 0.4 % (0-2) 03/22/20 11:01 Absolute Neuts (auto) 4.2 10^3/uL (1.7-8.2) 03/22/20 11:01 Absolute Lymphs (auto) 3.0 10^3/uL (0.5-4.7) 03/22/20 11:01 Absolute Monos (auto) 0.8 10^3/uL (0.1-1.4) 03/22/20 11:01 Absolute Eos (auto) 0.1 10^3/uL (0.0-0.6) 03/22/20 11:01 Absolute Basos (auto) 0.0 10^3/uL (0.0-0.2) 03/22/20 11:01 Seg Neutrophils % 52.3 % (42-78) 03/22/20 11:01 PT 13.4 SEC (11.4-15.4) 03/22/20 11:01 INR 1.00 03/22/20 11:01 APTT 30.9 SEC (23.5-35.8) 03/22/20 11:01 Sodium 130.7 mmol/L (137-145) L 03/22/20 11:01 Potassium 3.1 mmol/L (3.6-5.0) L 03/22/20 11:01 Chloride 91 mmol/L (98-107) L 03/22/20 11:01 Carbon Dioxide 31 mmol/L (22-30) H 03/22/20 11:01 Anion Gap 9 (5-19) 03/22/20 11:01 BUN 10 mg/dL (7-20) 03/22/20 11:01 Creatinine 0.68 mg/dL (0.52-1.25) 03/22/20 11:01 Est GFR ( Amer) > 60 (>60) 03/22/20 11:01 Est GFR (MDRD) Non-Af > 60 (>60) 03/22/20 11:01 Glucose 103 mg/dL (75-110) 03/22/20 11:01 Calcium 8.9 mg/dL (8.4-10.2) 03/22/20 11:01 COVID-19 Source See comment 03/20/20 11:40 COVID-19 (MARSHAL) Not Detected (Not Detect) 03/20/20 11:40 Impressions: Chest X-Ray 03/22/20 00:00 IMPRESSION: 1. Status post bronchoscopy, no evidence of pneumothorax. 2. Interval increase in size of the right paratracheal mass since the previous examination dated 01/15/2020. Please see CT chest report. Stroke Is this a Stroke Patient?: No Acute Heart Failure Is this a Heart Failure Patient?: No
== END 2020-03-22 17:00 | disposition home or self-care (01) ==
LOC: END 10:24
PROVIDERS: ATTEND Internal Medicine Pulmonary Disease
DX: C7A.8 Other malignant neuroendocrine tumors (principal); R91.8 Other nonspecific abnormal finding of lung field; I95.81 Postprocedural hypotension; G47.33 Obstructive sleep apnea (adult) (pediatric); F17.210 Nicotine dependence, cigarettes, uncomplicated; I10 Essential (primary) hypertension; J45.909 Unspecified asthma, uncomplicated; Z82.49 Family history of ischemic heart disease and other diseases of the circulatory system; Z79.82 Long term (current) use of aspirin; Z79.899 Other long term (current) drug therapy; Z03.818 Encounter for observation for suspected exposure to other biological agents ruled out
CPT/HCPCS: 31625; 31623; 31624; 36415; 87070; 87205; 85025; 85610; 85730; 80048; 88162; 88342 ×2; 88341 ×2; 88104 ×2; 88305 ×2; 71045; 00520; U0003; J2250; J3490 ×4; J3010; J2370; J2550; J2405; J2704; A9270; C9803; 520; 87635; J0461; J7613